=== PATIENT | female | born 1995 | race Caucasian/White ===

== ENCOUNTER 2017-05-16 16:29 | Emergency (ER) | payer MEDICAID ==
[2017-05-16 18:01] LABS: BILIRUBIN,URINE NEGATIVE (NEGATIVE); PH,URINE 6.5 PH (5.0-7.5); UA w/ MICROSCOPIC CHARGE YES
[2017-05-16 18:02] LABS: HCG UR QUAL NEGATIVE
[2017-05-16 18:22] LABS: UR CULTURE IF IND NOT INDICATED
--- NOTE | 2017-05-16 20:12 | ED Physician Documentation ---
History of Present Illness - Stated complaint Stated Complaint: FEMALE - Chief complaint Chief Complaint: General - History obtained from History obtained from: Patient (genital lesions, started yesterday, some burgning and itching. no fevers, no hx of STD's. no vaginal discharge, no urinary sx, no constipation no diarrhea.) Review of Systems Constitutional: denies: Fever, Chills Respiratory: denies: Cough, Hemoptysis GI: denies: Abdominal Pain, Nausea, Vomiting, Constipation, Diarrhea : reports: Other (vaginal lesions.). denies: Dysuria Skin: reports: Rash, Lesions Musculoskeletal: denies: Back pain Neurologic: denies: Generalized weakness PD PAST MEDICAL HISTORY - Past Medical History Past Medical History: No - Past Surgical History Past Surgical History: No - Present Medications Home Medications: Ambulatory Orders Medication Instructions Recorded Confirmed Acyclovir 400 mg PO Q8HR #30 tablet 05/16/17 - Allergies Allergies/Adverse Reactions: Allergies Allergy/AdvReac Type Severity Reaction Status Date / Time No Known Drug Allergies Allergy Verified 05/16/17 16:52 - Social History Does the pt smoke?: No Smoking Status: Never smoker Does the pt drink ETOH?: Yes Does the pt have substance abuse?: No - Immunizations Immunizations are current?: Yes - POLST Patient has POLST: No PD ED PE NORMAL - Vitals Vital signs reviewed: Yes - General General: Alert and oriented X 3 - Cardiac Cardiac: RRR, No murmur - Respiratory Respiratory: No respiratory distress, Clear bilaterally - Abdomen Abdomen: Soft, Non tender, Non distended - Female Female : Milk Condenser present, Other (vessicles and ulcerations just inside the labia. No other lesions. ) - Derm Derm: Other (lesions to the labia) - Neuro Neuro: Alert and oriented X 3 Eye Opening: Spontaneous Motor: Obeys Commands Verbal: Oriented GCS Score: 15 - Psych Psych: Normal mood, Normal affect Results - Vitals Vitals: Vital Signs - 24 hr 05/16/17 05/16/17 05/16/17 16:50 18:03 18:59 Temperature 36.8 C Heart Rate 66 84 64 Respiratory 16 14 18 Rate Blood Pressure 107/64 113/74 104/68 O2 Saturation 99 100 100 Oxygen O2 Source Room air - Labs Labs: Laboratory Tests 05/16/17 17:05 Urine Color LT. YELLOW Urine Clarity HAZY Urine pH 6.5 Ur Specific [place] 1.010 Urine Protein NEGATIVE Urine Glucose (UA) NEGATIVE Urine Ketones NEGATIVE Urine Occult Blood NEGATIVE Urine Nitrite NEGATIVE Urine Bilirubin NEGATIVE Urine Urobilinogen 0.2 (NORMAL) Ur Leukocyte Esterase MODERATE H Urine RBC 0-5 Urine WBC 6-10 H Ur Squamous Epith Cells MANY Squamous H Urine Bacteria Few Ur Microscopic Review INDICATED Urine Culture Comments NOT INDICATED Urine HCG, Qual NEGATIVE PD MEDICAL DECISION MAKING - ED course Complexity details: other ED course: pt with hx and PE that is C/W hsv. discussed with pt. HCG neg. I discussed HSV and its course and expected outcome. i informed the pt that we did not test for other STI's ot include GC/CT and hep b/c, RPR, and HIV. in informed pt that if she was concerned for these she needed to follow up with her PCM. she expressed understanding. Departure - Departure Disposition: 01 Home, Self Care Clinical Impression: HSV (herpes simplex virus) infection Condition: Good Instructions: Herpes Follow-Up: primary,care provider [Other] Prescriptions: Acyclovir 400 mg PO Q8HR #30 tablet Comments: Take all of your medications as instructed. Talk to your primary care provider for further treatment and testing for other STD's. Return to the ER for any new or worsening symptoms.
[2017-05-16 20:27] VITALS: BP 141/76
== END 2017-05-16 20:27 | disposition home or self-care (01) ==
LOC: ED 16:29
DX: B00.1 Herpesviral vesicular dermatitis (principal); Z86.711 Personal history of pulmonary embolism
CPT/HCPCS: 81001; 81003; 81025; 87086; 99283

== ENCOUNTER 2017-07-27 22:44 | Emergency (ER) | payer MEDICAID ==
[2017-07-27 22:59] VITALS: BP 98/73
--- NOTE | 2017-07-27 23:29 | ED Physician Documentation ---
PD HPI FEMALE - Stated complaint Stated Complaint: FEMALE - Chief complaint Chief Complaint: Abd Pain - History obtained from History obtained from: Patient - History of Present Illness Timing - onset: Today Timing - details: Abrupt onset, Now resolved Associated symptoms: Pelvic pain Contributing factors: Sexually active Similar symptoms before: Has not had sx before Recently seen: Not recently seen - Additional information Additional information: Patient is a 22 year old female presenting to the emergency department for pelvic pain. patient states that she was having intercourse when she developed a sharp pelvic pain. patient thought that her iud might have been misplaced. Patient's symptoms had resolved by initial evaluation. Review of Systems Constitutional: reports: Reviewed and negative Eyes: reports: Reviewed and negative Ears: reports: Reviewed and negative Nose: reports: Reviewed and negative Throat: reports: Reviewed and negative Cardiac: reports: Reviewed and negative GI: denies: Nausea, Vomiting : denies: Dysuria, Frequency, Discharge, Vaginal bleeding Skin: denies: Rash, Lesions Musculoskeletal: reports: Reviewed and negative Neurologic: reports: Reviewed and negative PD PAST MEDICAL HISTORY - Past Medical History Past Medical History: No - Past Surgical History Past Surgical History: No - Present Medications Home Medications: Ambulatory Orders Medication Instructions Recorded Confirmed Acyclovir 400 mg PO Q8HR #30 tablet 05/16/17 - Allergies Allergies/Adverse Reactions: Allergies Allergy/AdvReac Type Severity Reaction Status Date / Time No Known Drug Allergies Allergy Verified 07/27/17 23:00 - Social History Does the pt smoke?: No Smoking Status: Never smoker Does the pt drink ETOH?: Yes Does the pt have substance abuse?: No - Immunizations Immunizations are current?: Yes - POLST Patient has POLST: No PD ED PE NORMAL - Vitals Vital signs reviewed: Yes - General General: Alert and oriented X 3, No acute distress - HEENT HEENT: Atraumatic - Cardiac Cardiac: RRR, No murmur - Respiratory Respiratory: No respiratory distress - Abdomen Abdomen: Soft, Non tender, Non distended - Derm Derm: Normal color, No rash - Extremities Extremities: No deformity - Neuro Neuro: Alert and oriented X 3 - Psych Psych: Normal mood PD ED PE EXPANDED - Female Female : Normal external, Vaginal Discharge (minimal discharge with cervicitis ), Cultures sent Results - Vitals Vitals: Vital Signs - 24 hr 07/27/17 22:56 Temperature 36.8 C Heart Rate 89 Respiratory 18 Rate Blood Pressure 98/73 O2 Saturation 100 Oxygen O2 Source Room air - Labs Labs: Microbiology 07/27/17 23:10 Wet Prep - Final Vaginal PD MEDICAL DECISION MAKING - ED course Complexity details: reviewed old records, reviewed results, re-evaluated patient , considered differential, d/w patient ED course: Patient was seen and examined at bedside. patient was well appearing and in no distress. patient's pelvic revealed mild cervicitis. patient stated that after she had been seen here and diagnosed with herpes, her follow up appointment stated that she did not actually have any STIs. Patient's wet mount was within normal limits. patient required no further work up and was stable for discharge with outpatient follow up. Departure - Departure Disposition: 01 Home, Self Care Clinical Impression: Dyspareunia Condition: Good Instructions: Control IUD Follow-Up: primary,care provider [Other] - Within 3 Days Comments: Your diagnostics today were within normal limits. You will be called if your culture results are positive. You should follow up with your ob to check your iud. You may return to the emergency department at any time if needed for new, worsening or uncontrollable symptoms. Discharge Date/Time: 07/27/17 23:48
== END 2017-07-27 23:48 | disposition home or self-care (01) ==
LOC: ED 22:44
DX: N94.10 Unspecified dyspareunia (principal); N72 Inflammatory disease of cervix uteri
CPT/HCPCS: 87210; 87491; 87591; 99282; 99283